=== PATIENT | male | born 1995 | race Caucasian/White ===

== ENCOUNTER → 2022-01-30 12:51 | Outpatient (CLI) | payer OTHER, SELFPAY ==
--- NOTE | 2022-01-30 13:00 | DI.RAD.S_ITS ---
PROCEDURE: XR THORACIC SPINE 2V INDICATIONS: BACK PAIN TECHNIQUE: 3 views of the thoracic spine were acquired. COMPARISON: None. FINDINGS: Bones: No fractures or dislocations. No suspicious bony lesions. 12 pairs of ribs are noted, and appear intact where visualized. Mild mid and lower thoracic spondylosis. Soft tissues: No paravertebral stripe thickening. IMPRESSION: Thoracic spine without acute fracture or malalignment. Mild mid and lower thoracic spondylosis. Dictated by: Mehul Villagomez M.D. on 01/30/2022 at 16:32 Approved by: Mehul Villagomez M.D. on 01/30/2022 at 16:33
--- NOTE | 2022-01-30 13:00 | DI.RAD.S_ITS ---
PROCEDURE: XR LUMBAR SPINE 2-3V INDICATIONS: BACK PAIN TECHNIQUE: 3 views of the lumbar spine were acquired. COMPARISON: None. FINDINGS: Bones: 5 [id number] vertebrae are present. There is normal bony alignment. No vertebral body compression fractures. No suspicious bony lesions. Soft tissues: Overlying bowel gas pattern is normal. No suspicious soft tissue calcifications. IMPRESSION: No acute fracture. No osseous lesion. If symptoms and/or clinical suspicion for pathology persist, further assessment with repeat, or advanced imaging (e.g., CT, MRI, or bone scan) may be helpful for further assessment. Dictated by: Ar Castillo M.D. on 01/30/2022 at 15:09 Approved by: Ar Castillo M.D. on 01/30/2022 at 15:15
== END ==
PROVIDERS: PCP Physician Assistant; Referring Provider Physician Assistant; Visit Provider Physician Assistant
DX: M54.50 Low back pain, unspecified (principal); M47.814 Spondylosis without myelopathy or radiculopathy, thoracic region
CPT/HCPCS: 72070; 72100

== ENCOUNTER 2022-04-25 10:43 | Emergency (ER) | payer OTHER, SELFPAY ==
[2022-04-25] VITALS (10 sets, daily range): BP systolic 123–147; BP diastolic 65–100; PULSE 68–90; RESP 16–21; TEMP 36.8; O2SAT 96–100; BMI 41.5
--- NOTE | 2022-04-25 11:46 | DI.RAD.S_ITS ---
PROCEDURE: XR CHEST 1V INDICATIONS: covid/sob/chest pain TECHNIQUE: One view of the chest was acquired. COMPARISON: None. FINDINGS: Surgical changes and devices: None. Lungs and pleura: Lungs are clear. No pleural effusions or pneumothorax. Mediastinum: Mediastinal contours appear normal. Heart size is normal. Bones and chest wall: No suspicious bony lesions. Overlying soft tissues appear unremarkable. IMPRESSION: No acute cardiopulmonary pathology. Dictated by: Simone Moffett M.D. on 04/25/2022 at 12:22 Approved by: Simone Moffett M.D. on 04/25/2022 at 12:22
--- NOTE | 2022-04-25 13:03 | ED_ITS ---
HPI - Chest Pain <ILANA West - Last Filed: 04/25/22 14:18> General Chief Complaint: Chest Pain Stated Complaint: covid +/SOB/chest pain Time Seen by Provider: 04/25/22 12:52 Source: patient Mode of arrival: Ambulatory Limitations: no limitations History of Present Illness HPI narrative: This is a 26-year-old male presents to the emergency department on day four of COVID symptoms which have included muscle aches, chills, fatigue, and a cough. Patient states that he tested positive for COVID two days ago and has been using Tylenol as needed for his muscle aches. He denies other medications, he denies any nausea vomiting currently, he denies any nausea, vomiting, or diarrhea at all. He denies any chest pain or difficulty breathing but states that he has periods of time where his chest does hurt and he does feel short of breath like his lungs are burning but he denies any feeling of not getting enough air. He denies any difficulty breathing a or breathing fast, states that it is just painful to take a deep breath when he does. He denies any known fever but states that he has had chills and sweats occasionally. Patient is COVID vaccinated x2, denies any Huan & Huan vaccines. He denies any significant medical history, endorses having allergic asthma history but denies any wheezing or shortness of breath. Related Data Previous Rx's Medication Instructions Recorded fluticasone propionate 50 1 spray INTRANASAL BID #16 g 04/25/22 mcg/actuation nasal spray,suspension methocarbamol 500 mg tablet 500 mg PO TID PRN #14 tab 04/25/22 Allergies Allergy/AdvReac Type Severity Reaction Status Date / Time azithromycin Allergy Mild Diarrhea Verified 04/25/22 10:58 Review of Systems <ILANA West - Last Filed: 04/25/22 14:18> Review of Systems Narrative: General: denies fever, endorses having occasional chills, malaise, sweats, fatigue Head/Neck: denies headache, neck pain, dizziness Eyes: denies visual changes, eye pain Cardio: denies chest pain, palpitations, edema Respiratory: denies dyspnea, cough, orthopnea GI: denies abdominal pain, nausea, vomiting, or diarrhea : denies dysuria, hematuria, urinary retention, frequency or incontinence MSK: denies joint pain, muscle weakness Skin: denies rash, itching, skin lesions or other Neuro: denies numbness, tingling Patient History <ILANA West - Last Filed: 04/25/22 14:18> Substance Use Type: does not use Exam <ILANA West - Last Filed: 04/25/22 14:18> Narrative Exam Narrative: Independently reviewed vitals signs and nursing notes. General: cooperative, comfortable, in no acute distress, well groomed Head: atraumatic, symmetrical facial expressions Neck: supple Eyes: equal round and reactive, EOMI, conjunctiva normal Nose: nares patent, no rhinorrhea Mouth/Throat: moist mucus membranes Cardiovascular: regular rate and rhythm, no peripheral edema, warm extremities Respiratory: normal effort, able to speak in complete sentences, no audible wheezing, stridor, or rales. No retractions or tachypnea. No hypoxia, no abnormal breath sounds, no increased effort. GI: abdomen soft, nontender to palpation, nondistended, no masses, no exquisite tenderness with exam, without guarding or rebound. MSK: moves all extremities, neurovascularly intact, no weakness, normal tone Skin: brisk capillary refill, no rash, no erythema Neuro: normal speech and cognition, A&O x3 Psych: mental status is grossly normal, congruent mood, normal affect, pleasant and cooperative Initial Vital Signs Initial Vital Signs: Vital Signs Temperature 98.2 F 04/25/22 10:50 Pulse Rate 90 04/25/22 10:50 Respiratory Rate 18 04/25/22 10:50 Blood Pressure 147/76 H 04/25/22 10:50 Pulse Oximetry 97 04/25/22 10:50 <Leyla Worley DO - Last Filed: 04/26/22 20:04> Initial Vital Signs Initial Vital Signs: Vital Signs Temperature 98.2 F 04/25/22 10:50 Pulse Rate 90 04/25/22 10:50 Respiratory Rate 18 04/25/22 10:50 Blood Pressure 147/76 H 04/25/22 10:50 Pulse Oximetry 97 04/25/22 10:50 Course <ILANA West - Last Filed: 04/25/22 14:18> Orders Ordered: Discontinued Medications Ketorolac Tromethamine (Ketorolac 30 Mg/Ml Vial) 30 mg IM NOW ONE Stop: 04/25/22 13:04 Last Admin: 04/25/22 13:26 Dose: 30 mg Documented by: CLAUDIA Vital Signs Vital signs: Vital Signs - 8 hr 04/25/22 10:50 04/25/22 10:54 04/25/22 11:00 Temperature 98.2 F Pulse Rate 90 78 79 Respiratory Rate 18 Blood Pressure 147/76 H 135/74 Pulse Oximetry 97 98 96 04/25/22 11:30 04/25/22 11:31 04/25/22 12:30 Temperature Pulse Rate 77 77 75 Respiratory Rate 20 21 18 Blood Pressure 136/65 123/85 Pulse Oximetry 97 98 98 04/25/22 13:00 04/25/22 13:30 04/25/22 13:42 Temperature Pulse Rate 77 84 68 Respiratory Rate 18 18 16 Blood Pressure 123/86 134/100 H 127/74 Pulse Oximetry 99 98 100 04/25/22 13:57 Temperature Pulse Rate 76 Respiratory Rate 18 Blood Pressure 127/74 Pulse Oximetry 99 <Leyla Worley DO - Last Filed: 04/26/22 20:04> Orders Ordered: Discontinued Medications Ketorolac Tromethamine (Ketorolac 30 Mg/Ml Vial) 30 mg IM NOW ONE Stop: 04/25/22 13:04 Last Admin: 04/25/22 13:26 Dose: 30 mg Documented by: CLAUDIA Vital Signs Vital signs: Vital Signs - 8 hr 04/25/22 10:50 04/25/22 10:54 04/25/22 11:00 Temperature 98.2 F Pulse Rate 90 78 79 Respiratory Rate 18 Blood Pressure 147/76 H 135/74 Pulse Oximetry 97 98 96 04/25/22 11:30 04/25/22 11:31 04/25/22 12:30 Temperature Pulse Rate 77 77 75 Respiratory Rate 20 21 18 Blood Pressure 136/65 123/85 Pulse Oximetry 97 98 98 04/25/22 13:00 04/25/22 13:30 04/25/22 13:42 Temperature Pulse Rate 77 84 68 Respiratory Rate 18 18 16 Blood Pressure 123/86 134/100 H 127/74 Pulse Oximetry 99 98 100 04/25/22 13:57 Temperature Pulse Rate 76 Respiratory Rate 18 Blood Pressure 127/74 Pulse Oximetry 99 [facility] - Chest Pain <Saadia Tran, [facility] - Last Filed: 04/25/22 14:18> Imaging Data Chest x-ray: Radiologist's Impression: PROCEDURE:? XR CHEST 1V ? INDICATIONS:? covid/sob/chest pain ? TECHNIQUE:? One view of the chest was acquired.? ? COMPARISON:? None. ? FINDINGS:? ? Surgical changes and devices:? None.? ? Lungs and pleura:? Lungs are clear.? No pleural effusions or pneumothorax.? ? Mediastinum:? Mediastinal contours appear normal.? Heart size is normal.? ? Bones and chest wall:? No suspicious bony lesions.? Overlying soft tissues appear unremarkable.? ? IMPRESSION:? No acute cardiopulmonary pathology. ? ? Dictated by: Simone Moffett M.D. on 04/25/2022 at 12:22 ? ? Approved by: Simone Moffett M.D. on 04/25/2022 at 12:22 ? [facility] Narrative Medical decision making narrative: This is a 26-year-old male who is on day four of COVID symptoms and tested positive for COVID two days ago with chief complaint of muscle aches, pain with deep inspiration, fatigue, and pain when he breathes. He is COVID vaccinated x2, denies any difficulty breathing, or shortness of breath, endorses exertional shortness of breath but states this is likely due to his fatigue. He denies any wheezing, shortness of breath, he does have a history of allergic asthma, but has not had any episodes of wheezing or dyspnea. He states that he has not been taking any allergy medicine recently, he does have a mild cough, breath sounds are clear on exam, patient was satting 100% on room air while wearing an N95, no tachypnea or increased work of breathing, vital signs are within normal ranges. Recommend patient start taking Zyrtec to help with his congestion and allergic symptoms, Flonase each day, and methocarbamol as needed for muscle aches and pains, and Tylenol or Motrin for fever and pain. Encourage patient to stay hydrated, use [id number] medications as needed, continue quarantine until he is afebrile and beyond day five of symptoms. COVID (+) on day [4] of symptoms without hypoxia, respiratory distress, dehydration, or focal exam to suggest secondary bacterial infection. Discussed CDC guidelines for quarantine, mask wearing, physical distancing, and infection prevention measures such as frequent handwashing. Discussed supportive treatments: Tylenol/Motrin as needed for pain/fever. OTC decongestant medications and/or antihistamines for symptomatic relief. Maintain adequate fluid intake. Follow-up with PCP as directed. Return to clinic/ER instructions discussed for new, not improving, or worsening symptoms. All questions answered. Discharge Plan Departure Patient Disposition: Home Clinical Impression: COVID-19 Instructions: DI for COVID-19 (Suspected or Confirmed ) Activity Restrictions/Additional Instructions: *You have been diagnosed with COVID-19. Please continue to isolate for at least five days from onset of symptoms or for as long as you have a fever. Thank you for wearing a mask. Please stay hydrated, take Tylenol and ibuprofen every 6 hours as needed for aches and pains or fever, continue taking your Zyrtec for your allergic congestion symptoms it will also help COVID, please use Flonase morning and night, and if you need a decongestant I would recommend Sudafed D. please rest as much as you need but in sure your getting up and walking around several times a day to help move your body. Try to eat nursing food when you do, drink plenty of water, return to the emergency department if you are having difficulty breathing, significant chest pain with shortness of breath, nausea vomiting, or if you are having worsening concerns. Take a muscle relaxer every 8 hours as needed for muscle spasms. *What to do: *Please continue to take your regular medications as directed. [x] New medication prescriptions sent to your pharmacy: [ [facility]] [ ] New medication written as a paper prescription [ ] No new medications given *Please follow up with your primary care provider in 2-3 days, call for an appointment. Let them know you were seen in the Emergency Department and that we asked that you be seen for follow-up. We will electronically transmit a record of today's note if your PCP is in our system *If you do not have a primary care provider please contact [phone] to establish care with one of [facility] primary care providers. *Return to Emergency Department if you should have any new, worsening or concerning symptoms, such as [fever greater than 101F, chills, worsening pain, persistent vomiting or other bothersome symptoms] Prescriptions: New methocarbamol 500 mg tablet 500 mg PO TID PRN (Reason: muscle spasm) Qty: 14 0RF fluticasone propionate 50 mcg/actuation spray,suspension 1 spray intranasal BID Qty: 16 0RF Rx Instructions: administer into each nostril Referrals: Ginette Burt PA-C [Primary Care Provider] - <Leyla Worley DO - Last Filed: 04/26/22 20:04> Cosign ED Attending Cosignature Attestation: I was immediately available in the department for consultation. Documentation has been reviewed.
[2022-04-25] MEDS: KETOROLAC 30 MG/ML VIAL IM (13:26)
== END 2022-04-25 14:00 | disposition home or self-care (01) ==
PROVIDERS: Emergency Provider Nurse Practitioner Critical Care Medicine; PCP Physician Assistant
DX: U07.1 COVID-19 (principal)
CPT/HCPCS: 71045; 96372; 99283; J1885